=== PATIENT | male | born 1955 | race Caucasian/White ===

== ENCOUNTER → 2017-07-29 | Outpatient (CLI) | payer BC ==
[2015-11-27 10:47] VITALS: BP 163/93
[~2017-07-29] MED LIST: GLIM4TAB2 PO; HYDR25TA9 PO; LISI-334 PO; LISI40TA PO; METF500T4 PO; OXYC-328 PO; SITA50TA PO
--- NOTE | 2017-07-29 14:50 | KCIC ---
RS Compliance Statement: One or more of the following individualized dose reduction techniques were utilized for this examination: 1. Automated exposure control 2. Adjustment of the mA and/or kV according to patient size 3. Use of iterative reconstruction technique Coronary calcium score CT chest without contrast History: 61-year-old male with hypertension, hypercholesterolemia, diabetes, and family history of CAD. Technique: With retrospective electrocardiogram gating 2.5 mm thick axial reconstructed noncontrast images of the chest at the level of the coronary arteries was performed. Images were post processed on a [employer] workstation and calcium score calculated using the modified Agatston Janowitz protocol. Findings: Total coronary calcium score is 135.3. This is a moderate plaque burden and high cardiovascular disease risk. This is based on the calcium score of 0 of the left main coronary artery, 89.5 of the left anterior descending artery, score of 0 of the left circumflex artery and score of 45.9 of the right coronary artery. Noncoronary findings demonstrate cardiac size upper limits of normal. No pericardial effusion. There is respiratory motion artifact in the lungs. Mild bilateral atelectasis. IMPRESSION: Patient's total calcium score is 135. Electronically signed by: Gregg Travis MD (07/29/2017 2:46 PM) [id number]
== END | disposition home or self-care (01) ==
LOC: KCIC CT 13:16
PROVIDERS: ATTEND Family Medicine
DX: I10 Essential (primary) hypertension (principal); E11.9 Type 2 diabetes mellitus without complications; I25.10 Atherosclerotic heart disease of native coronary artery without angina pectoris; E78.00 Pure hypercholesterolemia, unspecified; Z82.49 Family history of ischemic heart disease and other diseases of the circulatory system
CPT/HCPCS: 75571

== ENCOUNTER → 2018-01-22 | Outpatient (CLI) | payer BC | END | disposition home or self-care (01) | LOC: KCIC US 07:51 | DX: K76.0 Fatty (change of) liver, not elsewhere classified (principal); N28.1 Cyst of kidney, acquired; R16.0 Hepatomegaly, not elsewhere classified | CPT/HCPCS: 76705 ==